=== PATIENT | male | born 1935 | race Caucasian/White ===

== ENCOUNTER 2020-05-22 14:58 | Emergency (ER) | payer MEDICARE, OTHER ==
[~2020-05-22 14:58] MED LIST: ALDACTONE 25MG25 MG PO; AZITHROMYCIN250 MG PO; AZITHROMYCIN500 MG PO; CATAPRES 0.1MG0.1 MG PO; CLARITIN10 M2 PO; FERROUS SULFAT325 MG PO; OMNICEF 300 MG300 MG PO; PROTONIX40 MG PO; TENORMIN 25 MG25 MG PO; VITAMIN B-122500 MCG SL; VITAMIN C500 M3 PO; VITAMIN D325 MCG PO
== END 2020-05-22 16:05 | disposition left against medical advice (07) ==
LOC: ER1 14:58
DX: R03.0 Elevated blood-pressure reading, without diagnosis of hypertension (principal); R42 Dizziness and giddiness; Z53.21 Procedure and treatment not carried out due to patient leaving prior to being seen by health care provider

== ENCOUNTER 2020-05-22 18:27 | Emergency (ER) | payer MEDICARE, OTHER | END 2020-05-22 21:25 | disposition left against medical advice (07) | LOC: ER1 18:27 | DX: R03.0 Elevated blood-pressure reading, without diagnosis of hypertension (principal); Z53.21 Procedure and treatment not carried out due to patient leaving prior to being seen by health care provider ==

== ENCOUNTER 2020-07-11 12:20 | Emergency (ER) | payer MEDICARE, OTHER ==
[2020-07-11 13:27] LABS: HEMOGLOBIN 12.4 gm/dl (14.0-17.5); RED BLOOD COUNT 3.93 M/UL (4.20-5.50); WHITE BLOOD COUNT 9.9 K/UL (4.5-11.0)
[2020-07-11 13:51] LABS: BUN/CREATININE RATIO 9 (0-10)
[2020-07-11] MEDS ORDERED: LASIX20 MG PO (14:36)
== END 2020-07-11 15:10 | disposition home or self-care (01) ==
LOC: ER1 12:20
PROVIDERS: Physician Assistant
DX: I12.9 Hypertensive chronic kidney disease with stage 1 through stage 4 chronic kidney disease, or unspecified chronic kidney disease (principal); N18.9 Chronic kidney disease, unspecified; R79.89 Other specified abnormal findings of blood chemistry; Z90.49 Acquired absence of other specified parts of digestive tract
CPT/HCPCS: 36415; 71045; 80053; 82550; 82553; 83874; 83880; 84484; 85025; 93005; 99284

== ENCOUNTER → 2020-08-21 | Outpatient (CLI) | payer MEDICARE, OTHER ==
[~2020-08-21] MED LIST changes: +ATENOLOL50 MG PO; +LASIX20 MG PO
== END ==
LOC: HEART 5 14:11
DX: I48.91 Unspecified atrial fibrillation (principal); I51.7 Cardiomegaly; I70.90 Unspecified atherosclerosis
CPT/HCPCS: 93306

== ENCOUNTER 2020-09-02 12:52 | Emergency (ER) | payer MEDICARE, OTHER ==
[~2020-09-02 12:52] MED LIST changes: -ATENOLOL50 MG PO
[2020-09-02] MEDS ORDERED: ATENOLOL50 MG PO (16:11)
== END 2020-09-02 16:10 | disposition home or self-care (01) ==
LOC: ER1 12:52
DX: I10 Essential (primary) hypertension (principal); I48.91 Unspecified atrial fibrillation
CPT/HCPCS: 99283

== ENCOUNTER → 2020-09-18 | Outpatient (CLI) | payer MEDICARE, OTHER ==
[~2020-09-18] MED LIST changes: +ATENOLOL50 MG PO
== END ==
LOC: KOH-I 11:16
DX: N18.30 Chronic kidney disease, stage 3 unspecified (principal); N28.1 Cyst of kidney, acquired
CPT/HCPCS: 76775

== ENCOUNTER → 2020-12-18 | Outpatient (CLI) | payer MEDICARE, OTHER | LOC: LAB 09:36 | PROVIDERS: Internal Medicine Nephrology | DX: N18.30 Chronic kidney disease, stage 3 unspecified (principal) | CPT/HCPCS: 36415; 80053; 82570; 84156 ==

== ENCOUNTER → 2021-06-18 | Outpatient (CLI) | payer MEDICARE, OTHER | LOC: LAB 11:57 | PROVIDERS: Internal Medicine Nephrology | DX: N18.31 Chronic kidney disease, stage 3a (principal) | CPT/HCPCS: 36415; 80053; 82570; 84156 ==

== ENCOUNTER → 2021-12-29 | Outpatient (CLI) | payer MEDICARE, OTHER | LOC: HEART 5 09:07 | DX: I50.9 Heart failure, unspecified (principal); R60.9 Edema, unspecified; R06.02 Shortness of breath; I08.3 Combined rheumatic disorders of mitral, aortic and tricuspid valves | CPT/HCPCS: 93306 ==